=== PATIENT | male | born 1995 | race African-American/Black ===

== ENCOUNTER 2019-02-20 02:36 | Emergency (ER) | payer OTHER ==
[~2019-02-20] VITALS: Ht 180.3 cm; Wt 63.5 kg
[2019-02-20] MEDS ORDERED: NORCO 5-325 TA1 EAC1 PO (05:28)
[2019-02-20] MEDS ORDERED: IBUPROFEN 600600 M1 PO (05:28)
[2019-02-20 05:32] VITALS: BP 118/64
--- NOTE | 2019-02-20 08:23 | EKG ---
[place] [address] [place] [address] ELECTROCARDIOGRAM REPORT Name: MINDY LOPEZ Room #: DEP MANI Montano#: [id number] Admission: 02/20/19 Attend Phys: Discharge: 02/20/19 Date of : [birth year] Report #: [id number] THIS REPORT FOR: //name// [facility] ED Test Date: 2019-02-20 Test Time: 03:15:16 Pat Name: MINDY LOPEZ Department: Room: Gender: [employer] Director: LESTERLORRAINE : 1995 Requested By: Rafat Maynard Order Number: [id number] MD: Drew Leon Measurements Intervals [place] Rate: 80 P: 65 WY: 119 QRS: 73 QRSD: 80 T: 65 QT: 377 QTc: 435 Interpretive Statements Sinus rhythm Borderline short [place] interval ST elevation suggests early repolarization No previous ECG available for comparison Electronically Signed On 02-20-2019 8:23:32 CDT by Drew Leon [email or web address] <ELECTRONICALLY SIGNED> By: Drew Leon MD, [facility] 02/20/19 0823 0315 0315 Drew Leon MD, FACC /EPI
== END 2019-02-20 05:34 | disposition home or self-care (01) ==
LOC: ER 02:36
DX: S01.412A Laceration without foreign body of left cheek and temporomandibular area, initial encounter (principal); F17.200 Nicotine dependence, unspecified, uncomplicated; Y04.2XXA Assault by strike against or bumped into by another person, initial encounter; Y92.89 Other specified places as the place of occurrence of the external cause; Y93.89 Activity, other specified; Y99.8 Other external cause status